=== PATIENT | male | born 1950 | race Caucasian/White ===

== ENCOUNTER 2025-03-21 14:03 | Outpatient (AMB) | payer MEDICARE, SELFPAY ==
--- NOTE | 2025-03-21 14:07 | A.SPINEOV_ITS ---
Intake Visit Reasons: Lumbar Spinal Stenosis Intake Note: Mr. Blunt is here today c/o back pain. MRI done @ [facility] (brought disc). [employer] Required: No Assessment & Plan Assessment & Plan (1) Spinal stenosis: Code(s): M48.00 - Spinal stenosis, site unspecified Category: Medical Plan Dear Dr. Vinson, Thank you for referring Conner to our office today. He is a pleasant 74-year-old male who comes in today for evaluation of low back pain, bilateral hip pain, and occasional shooting pains down the lateral aspect of his bilateral legs. In addition to this he reports worsening neuropathy over the course of the past 10 years or so, which started as some numbness and tingling in his fee t, and has essentially turned into complete loss of superficial sensation below the knees. He reports that he was diagnosed with fairly significant spinal stenosis about 10 years ago, but decided to begin treating this issue conservatively. He has done many courses of physical therapy, gone to the chiropractor regularly, engaged with acupuncture specialist, and done massage therapy extensively. In addition to this he attempted cortisone injections in his lumbar spine, however reports that these were not helpful for him. When describing his pain he states that his low back pain and hip pain is by far the worst, but is occasionally accompanied by the shooting pain described above. He feels that his low back pain and hip pain is a low-grade 6/10 pain which occurs fairly consistently throughout the day. It does not seem to worsen at all with ambulation, and the patient states that he is able to walk about 2 miles per day if so inclined. He has no issues completing his activities of daily living, aside from the occasional flare-ups of low back pain that will restrict him. PMH: IBS, 2 inguinal hernia repairs, cholecystectomy, vasectomy. Stage III CKD. Social hx: The patient does not smoke, reports no substance use. Medications: Occasional viagra. No other reported medications. Allergies: Tylenol Physical exam: The patient has 5/5 strength in his upper and lower extremities. He ambulates well with a non spastic nonantalgic gait. He uses no assistive devices to ambulate. His bilateral patellar reflexes are absent, his Achilles reflexes are 1+ hypoactive, he has upper extremity reflexes are 2+ intact. He has sensational deficits reported below the knees bilaterally. He first acknowledges normal sensation about midway up the anterior thigh. (-) bilateral straight leg raise, (-) Person's, (-) clonus. Imaging review: MRI of the lumbar spine completed here at [facility] shows diffuse spondylosis of the lumbar spine with severe degenerative disc disease seen throughout the lumbar spine. Most notably, there is severe central canal and bilateral foraminal stenosis at L3-4, L4-5. Impression: Conner is a pleasant 74-year-old male who comes in today for evaluation of low back pain, bilateral hip pain, and occasional shooting pains down the lateral aspect of his bilateral lower extremities. He reports this has been ongoing for the past 10 years, and he has attempted to treat his symptoms conservatively with various forms of management as described in HPI. Fortunately for him, he has remained fairly functional throughout the years in so doing, and is still able to complete meaningful activities including long walks and regular exercise. I would say that from a neurosurgical perspective the most concerning symptom that Conner has is the progressive worsening lower extremity numbness which is now extending up past his knees. I believe this is likely due to the severe compression see on MRI imaging at L3-4, L4-5. We discussed the possible treatment options for this severe stenosis seen L3-5. I believe outpatient elective 2 level minimally invasive lumbar decompression would be the best avenue to treat this. We extensively discussed this, the patient prefers to continue pursuing conservative measures at this time. He was encouraged to follow up with our office in the future if his symptoms worsen and he would like re-evaluation. Thank you for allowing us to care for your patient. The total time spent with this visit with this patient was 60 minutes reviewing history, physical exam, MRI imaging review, and implementation of treatment plan or further diagnostic testing Len Ng MD,PhD [facility] Coding Level of Care Code New Pt Level 5 (08610) Diagnoses Spinal stenosis M48.00
--- OUTSIDE RECORDS SUMMARY | 2025-03-21 14:30 | XMS_ITS | Encounter Summary ---
Author Organization [facility] Address [address] [place] [phone] Phone Care Team Providers Care Cell Stripper Final Name Role Phone Kamar Vinson DO Unavailable [phone] Kamar Vinson DO Primary Care Provider Encounter Details Date Type Department Care Team (Late st Contact Info) Description 01/25/2025 Procedure [facility], [address] [id number] Social History Tobacco Use Types Packs/Day Years Used Date Smoking Tobacco: Never Smokeless Tobacco: Never Alcohol Use Standard Drinks/Week Comments Not Currently 0 (1 standard drink = 0.6 oz pur e alcohol) none Child or Family Care Answer Date Record ed Do you have problems with on e of the following making it difficult for you to work, study, or receive health care? No 04/25/2024 Education Answer Date Recorded Are you interested in more education? Not on heena e 12/06/2022 Are you concerned about learning? Not on file 12/06/2022 No 12/06/2022 No 12/06/2022 Food Answer Date Recorded Within the past 6 months we worried whether our food would run out before we got money to buy more. Never True 04/25/2024 Within the past 6 months the food we bought just didn't last and we didn't have enough money to get more. Never True Residential Stability Answer Date Recor ded What is your housing situation today? I have [facility] 04/25/2024 How many times have you move d in the past 12 months? Zero (I did not move) 04/25/2024 Paying for Meds Answer Date Recorded Do you have trouble paying for medicines? No 04/25/2024 Paying Utility Bills Answer Date Record ed Do you have trouble paying your heating or elect ricity bill? No 04/25/2024 Transportation Answer Date Recorded Has the lack of transportati on kept you from medical appointments or from getting medications? No 04/25/2024 Digital Access Answer Date Recorded No 04/25/2024 Yes 04/25/2024 Do you have reliable internet access at home? Ye s 04/25/2024 Do you have a device (e.g., phone, tablet, computer) with a working camera? Yes 04/25/2024 Intimate Partner Violence Answer Date R ecorded Are you denied basic needs s uch as food, clothing, or medical care? No 07/07/2024 In the past 12 months have y ou been in a relationship with a person who hurts, threatens, or tries to control you? No 07/07/2024 Are you denied basic needs s uch as food, clothing, or medical care? No 07/07/2024 In the past 12 months have y ou been in a relationship with a person who hurts, threatens, or tries to control you? No 07/07/2024 Sex and Gender Information Value Date Recorded Sex Assigned at Male 04/06/2021 6:37 AM EDT Legal Sex Male 10:36 PM EDT Gender Identity Male 04/06/2021 6:37 AM EDT Sexual Orientation Straight 04/06/2021 6 :37 AM EDT documented as of this encounter Plan of Treatment Upcoming Encounters Date Type Department Care Team (Late st Contact Info) Description 04/28/2025 8:30 AM EDT Office Visit [facility] [address] [place] [address] [place] [address] Kamar Vinson DO [address] [facility] [place] [address] [email or web address] documented as of this encounter Visit Diagnoses Not on filedocumented in this encounter Additional Health Concerns Assessment Noted Time PHQ-9 Depression Total Score: 9 11/10/19 21 8:35 AM EDT PHQ-2 Depression Total Score: 1 04/29/20 24 9:25 PM EDT documented as of this encounter Care Teams Cell Stripper Final Relationship Specialty Start Date End Date Kamar Vinson DO [address] [place] [address], [address] [place] [id number] [email or web address] PCP - General Internal Medicine 11/15/23 Kamar Vinson DO [address] [place] [id number] Insurance Assigned Provider 11/15/23 documented as of this encounter Additional Source Comments The information contained in this document represents components of the legal health record. It is not the complete legal health record.[facility]
== END 2025-03-21 14:43 | disposition home or self-care (01) ==
LOC: HO.HNS 14:03
PROVIDERS: PCP Pediatrics; Referring Provider Pediatrics; Visit Provider Physician Assistant
DX: M48.00 Spinal stenosis, site unspecified (principal)
CPT/HCPCS: 99205

== ENCOUNTER → 2025-03-21 14:03 | Outpatient (BNVA) | payer MEDICARE, SELFPAY | PROVIDERS: PCP Pediatrics; Referring Provider Pediatrics; Visit Provider Physician Assistant | DX: M48.061 Spinal stenosis, lumbar region without neurogenic claudication (principal) | CPT/HCPCS: 99202 ==